=== PATIENT | female | born 1945 | race Caucasian/White ===

== ENCOUNTER 2017-11-25 03:18 | Emergency (ER) | payer MEDICARE ==
[~2017-11-25] VITALS: Ht 167.6 cm; Wt 84.0 kg
[~2017-11-25 03:18] MED LIST: ALPR0.254 PO; CHOL500015 PO; DIAZ5TAB4 PO; FLUO60TA PO; GABA300C10 PO; LISI-167 PO; OMEP-110 PO; OXYC1TAB9 PO; OXYC5TAB3 PO; levothyroxine PO
[2017-11-25] MEDS ORDERED: SODIUM CHLORIDE FLUSH 10ML SYR IVF ONE (03:30)
[2017-11-25] MEDS ORDERED: KETOROLAC 30 MG/1 ML IVPush ONE (03:30)
[2017-11-25] MEDS ORDERED: DIPHENHYDRAMINE 50 MG/ML, 1ML IVPush ONE (03:30)
[2017-11-25] MEDS ORDERED: PROCHLORPERAZINE 5 MG/ML, 2ML IVPush ONE (03:30)
[2017-11-25] MEDS ORDERED: SODIUM CHLORIDE 0.9% 1,000ML IVBOLUS ONE (03:30)
[2017-11-25] MEDS ORDERED: KETOROLAC 30 MG/1 ML ONE (03:32)
[2017-11-25] MEDS ORDERED: DIPHENHYDRAMINE 50 MG/ML, 1ML ONE (03:32)
[2017-11-25] MEDS ORDERED: PROCHLORPERAZINE 5 MG/ML, 2ML ONE (03:32)
[2017-11-25 04:37] VITALS: BP 108/72
== END 2017-11-25 05:01 | disposition home or self-care (01) ==
LOC: ED 04:55 → MERGE 04:55 → ED 05:01
DX: R51 Headache (principal); F17.200 Nicotine dependence, unspecified, uncomplicated; I10 Essential (primary) hypertension
CPT/HCPCS: 96374; 96375; 99284; J0780; J1200; J1885; J7030